=== PATIENT | male | born 1965 | race Caucasian/White ===

== ENCOUNTER 2017-01-06 07:56 | Day surgery (SDC) | payer BC ==
[2017-01-06] MEDS ORDERED: Lactated Ringer's 1,000 ML IV ONE (08:16)
[2017-01-06] MEDS ORDERED: Propofol 10 mg/ml Inj (20 ML) ONE (09:12)
[2017-01-06] MEDS ORDERED: Lidocaine 2% MPF (5 ml) Inj ONE (09:13)
[2017-01-06 09:31] VITALS: TEMP 98; O2SAT 99
[2017-01-06 10:11] VITALS: BP 117/61; PULSE 63; RESP 17
== END 2017-01-06 10:28 | disposition home or self-care (01) ==
LOC: H.ENDO 07:56
PROVIDERS: ATTEND Internal Medicine Gastroenterology
DX: D12.5 Benign neoplasm of sigmoid colon (principal); K64.0 First degree hemorrhoids; K62.5 Hemorrhage of anus and rectum; K92.2 Gastrointestinal hemorrhage, unspecified
CPT/HCPCS: 45380; 88305; J2704; J7120

== ENCOUNTER 2017-01-18 07:55 | Emergency (ER) | payer BC ==
[2017-01-18 07:58] VITALS: BMI 29.7
[2017-01-18 07:59] VITALS: BP 143/79; PULSE 72; RESP 16; TEMP 97.5; O2SAT 100
[2017-01-18] MEDS ORDERED: Naproxen 500 MG TAB PO ONE ×2 (08:27→08:36)
--- NOTE | 2017-01-18 08:42 | ED PDOC ---
Upper Extremity Pain/Injury Time Seen by Provider: 01/18/17 08:14 Chief Complaint (Nursing): Upper Extremity Problem/Injury Chief Complaint (Provider): left arm pain History Per: Patient History/Exam Limitations: no limitations Onset/Duration Of Symptoms: Hrs, Sudden Onset Current Symptoms Are (Timing): Still Present Quality: "Pain" Additional History Per: Patient Additional Complaint(s): 51yo male, with past medical history of diabetes and hypertension, presents to ED for evaluation of left arm pain after he slipped and fell on a slippery surface earlier today. Patient states he did not have any chest pain, shortness of breath, headache prior to the fall. He also denies any head injuries or loss of consciousness due to the fall. Patient has no other medical complaints. Past Medical History Reviewed: Historical Data, Nursing Documentation, Vital Signs Vital Signs: Last Vital Signs Temp 97.5 F L 01/18/17 07:57 Pulse 72 01/18/17 07:57 Resp 16 01/18/17 07:57 BP 143/79 01/18/17 07:57 Pulse Ox 100 01/18/17 07:57 - Medical History PMH: Diabetes, HTN Denies: Chronic Kidney Disease - Surgical History Surgical History: Cholecystectomy, Tonsillectomy - Family History Family History: States: No Known Family Hx - Living Arrangements Living Arrangements: With Family - Social History Current smoker - smoking cessation education provided: No Ex-Smoker (has not smoked in the last 12 months): No Alcohol: None Drugs: Denies - Home Medications Home Medications: Ambulatory Orders Medication Instructions Recorded Hydrochlorothiazide [Microzide] 12.5 mg PO DAILY 01/06/17 Ramipril [Altace] 5 mg PO DAILY 01/06/17 metFORMIN [glucOPHAGE] 500 mg PO BID 01/06/17 Naproxen [Naprosyn] 500 mg PO BID PRN #20 tablet 01/18/17 - Allergies Allergies/Adverse Reactions: Allergies Allergy/AdvReac Type Severity Reaction Status Date / Time No Known Allergies Allergy Verified 01/18/17 08:03 Review of Systems Musculoskeletal: Positive for: Arm Pain (left forearm and elbow) Neurological: Negative for: Weakness, Numbness, Headache, Dizziness Physical Exam - Reviewed Nursing Documentation Reviewed: Yes Vital Signs Reviewed: Yes - Physical Exam Appears: Positive for: Non-toxic, No Acute Distress Head Exam: Positive for: ATRAUMATIC, NORMAL INSPECTION, NORMOCEPHALIC Skin: Positive for: Normal Color Neck: Positive for: Supple Cardiovascular/Chest: Positive for: Regular Rate, Rhythm Respiratory: Positive for: Normal Breath Sounds. Negative for: Respiratory Distress Extremity: Positive for: Tenderness (tenderness noted to left elbow and proximal left forearm), Other (edi consultant strength 5/5 of left upper extremity; sensations intact). Negative for: Deformity, Swelling Neurologic/Psych: Positive for: Alert, Oriented. Negative for: Motor/Sensory Deficits - ECG O2 Sat by Pulse Oximetry: 100 (RA) Pulse Ox Interpretation: Normal Medical Decision Making Medical Decision Making: Time: 826 Impression: Left arm injury s/p fall Plan: -- XR left elbow -- XR Left forearm -- Naproxen 500 mg PO Reassess Scribe Attestation: Documented by Gloria Sinha acting as a scribe for Daphnie Brown MD. Provider Attestation: All medical record entries made by the Scribe were at my direction and personally dictated by me. I have reviewed the chart and agree that the record accurately reflects my personal performance of the history, physical exam, medical decision making, and the department course for this patient. I have also personally directed, reviewed, and agree with the discharge instructions and disposition. Disposition - Clinical Impression Clinical Impression: Elbow contusion - Patient ED Disposition Is Patient to be Admitted: No Doctor Will See Patient In The: Office Counseled Patient/Family Regarding: Diagnosis, Need For Followup, Rx Given - Disposition Disposition: Routine/Home Disposition Time: 10:26 Condition: STABLE Additional Instructions: repeat x-rays in 7-10 days if pain is persistent Prescriptions: Naproxen [Naprosyn] 500 mg PO BID PRN #20 tablet PRN Reason: Pain, Moderate (4-7) Instructions: Contusion in Adults (ED) Forms: [employer] (Arabic), [facility] ED School/Work Excuse - POA Present On Arrival: Falls Or Trauma
--- NOTE | 2017-01-18 11:24 | RAD ---
PROCEDURE: Radiographs of the left elbow. HISTORY: fall on ice, no LoC COMPARISON: No prior. FINDINGS: BONES: Normal. No fracture. JOINTS: Normal. No osteoarthritis. SOFT TISSUES: Normal. JOINT EFFUSION: None. OTHER FINDINGS: None IMPRESSION: Unremarkable radiographs of the left elbow.
--- NOTE | 2017-01-18 11:29 | RAD ---
HISTORY: fall on ice, no LoC COMPARISON: No prior FINDINGS: BONES: Normal. No fracture. JOINTS: Normal. No osteoarthritis. SOFT TISSUE: Normal. OTHER FINDINGS: None . IMPRESSION: Normal Bone Xray.
== END 2017-01-18 10:39 | disposition home or self-care (01) ==
LOC: H.ER 07:55
DX: S50.01XA Contusion of right elbow, initial encounter (principal); W00.0XXA Fall on same level due to ice and snow, initial encounter; Y92.89 Other specified places as the place of occurrence of the external cause; E11.9 Type 2 diabetes mellitus without complications; I10 Essential (primary) hypertension; Z79.84 Long term (current) use of oral hypoglycemic drugs; Z87.891 Personal history of nicotine dependence

== ENCOUNTER 2017-01-23 10:06 | Emergency (ER) | payer BC ==
[2017-01-23 10:07] VITALS: BMI 29.7
[2017-01-23 10:11] VITALS: BP 154/91; PULSE 80; RESP 16; TEMP 96.8; O2SAT 100
--- NOTE | 2017-01-23 10:33 | ED PDOC ---
Upper Extremity Pain/Injury Time Seen by Provider: 01/23/17 10:10 Chief Complaint (Nursing): Upper Extremity Problem/Injury Chief Complaint (Provider): Left Elbow Pain History Per: Patient History/Exam Limitations: no limitations Onset/Duration Of Symptoms: Days (x5-6) Current Symptoms Are (Timing): Still Present Additional Complaint(s): Yahir Matias is a 51 year old male with a past medical history of diabetes and hypertension presenting to the ED referred by PMD for left elbow pain. The patient reports he was seen in this ER 5 days prior to arrival s/p injury experienced to left elbow. The patient had Xrays completed at that time, when initially ready by radiologist they resulted as negative. The patient's pain persisted, therefore he visited an outside radiologist and had an Xray completed revealing an avulsion to his left elbow. The patient reports pain to his left elbow and denies weakness or paresthesia. PMD: Aiden Cota MD Past Medical History Reviewed: Historical Data, Nursing Documentation, Vital Signs Vital Signs: Last Vital Signs Temp 96.8 F L 01/23/17 10:09 Pulse 80 01/23/17 10:09 Resp 16 01/23/17 10:09 BP 154/91 H 01/23/17 10:09 Pulse Ox 100 01/23/17 10:09 - Medical History PMH: Diabetes, HTN Denies: Chronic Kidney Disease - Surgical History Surgical History: Cholecystectomy, Tonsillectomy - Family History Family History: States: No Known Family Hx - Home Medications Home Medications: Ambulatory Orders Medication Instructions Recorded Hydrochlorothiazide [Microzide] 12.5 mg PO DAILY 01/06/17 Ramipril [Altace] 5 mg PO DAILY 01/06/17 metFORMIN [glucOPHAGE] 500 mg PO BID 01/06/17 Naproxen [Naprosyn] 500 mg PO BID PRN #20 tablet 01/18/17 traMADol [Ultram] 50 mg PO Q8 #10 tab 01/23/17 - Allergies Allergies/Adverse Reactions: Allergies Allergy/AdvReac Type Severity Reaction Status Date / Time No Known Allergies Allergy Verified 01/18/17 08:03 Review of Systems ROS Statement: Except As Marked, All Systems Reviewed And Found Negative Musculoskeletal: Positive for: Arm Pain (left elbow pain) Neurological: Negative for: Weakness (and no paresthesia) Physical Exam - Reviewed Nursing Documentation Reviewed: Yes Vital Signs Reviewed: Yes - Physical Exam Appears: Positive for: Non-toxic, No Acute Distress Head Exam: Positive for: ATRAUMATIC, NORMOCEPHALIC Skin: Positive for: Normal Color, Warm, Dry Eye Exam: Positive for: Normal appearance, EOMI ENT: Positive for: Normal ENT Inspection Neck: Positive for: Normal, Painless ROM Cardiovascular/Chest: Positive for: Regular Rate, Rhythm, Chest Non Tender. Negative for: Murmur Respiratory: Positive for: Normal Breath Sounds. Negative for: Respiratory Distress Gastrointestinal/Abdominal: Positive for: Normal Exam, Soft. Negative for: Tenderness Back: Positive for: Normal Inspection Extremity: Positive for: Tenderness, Swelling (left elbow pain, swelling, tenderness medially with ecchymosis), Other (patient is neurovascularly compromised) Neurologic/Psych: Positive for: Alert, Oriented (x3). Negative for: Motor/ Sensory Deficits - ECG O2 Sat by Pulse Oximetry: 100 (RA) Pulse Ox Interpretation: Normal Medical Decision Making Medical Decision Making: Time: 10:10 Impression: Left elbow pain Plan: * Will place pt in posterior splint and refer to ortho. Scribe Attestation: Documented by Deidra Weir, acting as a scribe for Kd Mims MD. Provider Scribe Attestation: All medical record entries made by the Scribe were at my direction and personally dictated by me. I have reviewed the chart and agree that the record accurately reflects my personal performance of the history, physical exam, medical decision making, and the department course for this patient. I have also personally directed, reviewed, and agree with the discharge instructions and disposition. Disposition - Clinical Impression Clinical Impression: Elbow fracture - Patient ED Disposition Is Patient to be Admitted: No Counseled Patient/Family Regarding: Diagnosis, Need For Followup, Rx Given - Disposition Referrals: Mino Baker MD [Medical Doctor] - Disposition: Routine/Home Disposition Time: 10:45 Condition: FAIR Prescriptions: traMADol [Ultram] 50 mg PO Q8 #10 tab Instructions: Elbow Fracture in Adults (ED) Forms: [employer] (Belarusian)
== END 2017-01-23 11:17 | disposition home or self-care (01) ==
LOC: H.ER 10:06
DX: Z47.89 Encounter for other orthopedic aftercare (principal); E11.9 Type 2 diabetes mellitus without complications; I10 Essential (primary) hypertension; Z79.84 Long term (current) use of oral hypoglycemic drugs